=== PATIENT | male | born 1930 | race Caucasian/White ===

== ENCOUNTER 2016-06-12 13:49 | Inpatient (IN) | payer OTHER ==
[~2016-06-12] VITALS: Ht 177.8 cm; Wt 88.9 kg
[~2016-06-12 13:49] MED LIST: AMLODIPINE BESYL5 MG PO; AZITHROMYCIN250 MG1 PO; DAILY VALUE1 EACH PO; LEVAQUIN500 MG PO; METOPROLOL TART50 MG PO; PLAVIX75 MG PO; PROVENTIL HFA6.7 GM IH; QUINAPRIL HCL20 MG PO; SIMVASTATIN20 MG PO
[2016-06-12] MEDS ORDERED: CALCIUM 500 +1 EACH PO (14:05)
[2016-06-12] MEDS ORDERED: ASPIR 8181 M1 PO (14:05)
[2016-06-12 14:39] LABS: HEMATOCRIT 42.6 % (38.0-50.0); MCH 33.3 PG (29.0-34.0); MCHC 34.5 G/DL (30.0-36.0); MCV 96.6 FL (86-99); MEAN PLAT.VOLUME 8.6 uM^3 (9.0-12.4); PLATELET COUNT 371 K/uL (156-360); RBC DIS.WIDTH-CV 12.9 % (11.8-14.6); RBC DIS.WIDTH-SD 45.7 % (39-53); RED BLOOD COUNT 4.41 M/uL (4.00-5.50); WHITE BLOOD COUNT 19.1 K/uL (4.1-10.2)
[2016-06-12 14:48] LABS: ADD MIUA? YES; BILIRUBIN NEGATIVE; BLOOD NEGATIVE; COLOR AMBER ((YELLOW)); GLUCOSE (STRIP) NEGATIVE; KETONES 5; LEUKOCYTES NEGATIVE; NITRITE NEGATIVE; PROTEIN (STRIP) 100; SPECIFIC GRAVITY 1.028 (1.000-1.030); UROBILINOGEN 0.2 MG/DL (0.2-1.0)
[2016-06-12 14:53] LABS: CHLORIDE 101 mEq/L (99-109)
[2016-06-12 14:54] LABS: SODIUM 135 mEq/L (136-147)
[2016-06-12 14:54] LABS: BACTERIA RARE /HPF; EPITHELIAL CELLS NONE SEEN /HPF; MUCUS 2+ /LPF; RED BLOOD CELLS 0-5 /HPF (0-5); UCUL ADDED? NO; WHITE BLOOD CELLS 0-5 /HPF (0-5)
[2016-06-12 14:56] LABS: GLUCOSE 117 mg/dL (70-99)
[2016-06-12 14:57] LABS: ANION GAP 11 MEQ/L (2-14)
[2016-06-12 14:58] LABS: TOTAL BILIRUBIN 1.2 mg/dL (0.0-1.0)
[2016-06-12 14:59] LABS: ALKALINE PHOSPHATASE 57 IU/L (3-129)
[2016-06-12 15:00] LABS: GFR ESTIMATE (CALCULATED) > 59 mL/min/
[2016-06-12 15:01] LABS: DIRECT BILIRUBIN 0.6 mg/dL (0.0-0.3); UREA NITROGEN (BUN) 27 mg/dL (9-23)
[2016-06-12 15:03] LABS: LIPASE 9 U/L (1.0-51.0)
[2016-06-12 15:06] LABS: TROP-I INTERPRETATION NEGATIVE; TROPONIN-I 0.01 ng/mL (0.0-0.30)
[2016-06-12 22:02] VITALS: BP 140/62
[2016-06-13 02:50] VITALS: BP 139/74
[2016-06-13 05:58] LABS: ALKALINE PHOSPHATASE 42 IU/L (3-129); ANION GAP 9 MEQ/L (2-14); CHLORIDE 102 MEQ/L (99-109); GFR ESTIMATE (CALCULATED) > 59 mL/min/; GLUCOSE 155 mg/dL (70-99); POTASSIUM 4.4 MEQ/L (3.7-5.4); SAMPLE HEMOLYSIS CHECK 0; SAMPLE ICTERIC CHECK 0; SAMPLE LIPEMIA CHECK 0; SODIUM 134 MEQ/L (136-147); TOTAL BILIRUBIN 0.8 MG/DL (0.0-1.0); UREA NITROGEN (BUN) 28 mg/dL (9-23)
[2016-06-13 06:17] LABS: HEMATOCRIT 36.4 % (38.0-50.0); MCH 32.9 PG (29.0-34.0); MCHC 32.7 G/DL (30.0-36.0); MEAN PLAT.VOLUME 9.1 uM^3 (9.0-12.4); PLATELET COUNT 336 K/uL (156-360); RBC DIS.WIDTH-CV 13.1 % (11.8-14.6); RBC DIS.WIDTH-SD 48.6 % (39-53); RED BLOOD COUNT 3.62 M/uL (4.00-5.50); WHITE BLOOD COUNT 15.6 K/uL (4.1-10.2)
[2016-06-13 06:22] LABS: MCV 100.6 FL (86-99)
[2016-06-13 08:25] VITALS: BP 131/68
[2016-06-13 12:27] VITALS: BP 143/78
[2016-06-13 17:06] VITALS: BP 137/65
[2016-06-13 22:42] VITALS: BP 141/69
[2016-06-14 02:54] VITALS: BP 109/60
[2016-06-14 06:34] LABS: HEMATOCRIT 30.5 % (38.0-50.0); MCH 33.2 PG (29.0-34.0); MCHC 33.4 G/DL (30.0-36.0); MCV 99.3 FL (86-99); MEAN PLAT.VOLUME 9.3 uM^3 (9.0-12.4); NRBC (%) 0.2 /100 WBC (0-0); PLATELET COUNT 344 K/uL (156-360); RBC DIS.WIDTH-CV 12.9 % (11.8-14.6); RBC DIS.WIDTH-SD 46.3 % (39-53); RED BLOOD COUNT 3.07 M/uL (4.00-5.50)
[2016-06-14 07:00] VITALS: BP 127/60
[2016-06-14 07:04] LABS: ALKALINE PHOSPHATASE 41 IU/L (3-129); ANION GAP 9 MEQ/L (2-14); CHLORIDE 104 MEQ/L (99-109); GFR ESTIMATE (CALCULATED) > 59 mL/min/; POTASSIUM 4.4 MEQ/L (3.7-5.4); SAMPLE HEMOLYSIS CHECK 0; SAMPLE ICTERIC CHECK 0; SAMPLE LIPEMIA CHECK 0; SODIUM 138 MEQ/L (136-147); UREA NITROGEN (BUN) 24 mg/dL (9-23)
[2016-06-14 07:05] LABS: GLUCOSE 98 mg/dL (70-99); TOTAL BILIRUBIN 0.6 MG/DL (0.0-1.0)
[2016-06-14 10:47] VITALS: BP 112/60
[2016-06-14 15:55] VITALS: BP 125/59
[2016-06-14 19:23] VITALS: BP 116/59
[2016-06-14 23:34] VITALS: BP 126/69; BP 134/63
[2016-06-15 07:20] VITALS: BP 130/62
[2016-06-15] MEDS ORDERED: HYDROCODON-ACE1 EAC7 PO (10:00)
[2016-06-15] MEDS ORDERED: TAMSULOSIN HCL0.4 MG PO (10:00)
[2016-06-15] MEDS ORDERED: COLACE100 MG PO (10:00)
[2016-06-15 11:19] VITALS: BP 128/70
== END 2016-06-15 15:58 | disposition home or self-care (01) | DRG 419 ==
LOC: EME 13:49 → EDOF 16:30 → 5EAST 16:30
PROVIDERS: Emergency Medicine; Thoracic Surgery (Cardiothoracic Vascular Surgery)
PROC: 0FT44ZZ Resection of Gallbladder, Percutaneous Endoscopic Approach (ICD-10-PCS; principal; 2016-06-12)
DX: K80.00 Calculus of gallbladder with acute cholecystitis without obstruction (principal); I10 Essential (primary) hypertension; I25.10 Atherosclerotic heart disease of native coronary artery without angina pectoris; E78.5 Hyperlipidemia, unspecified; Z86.73 Personal history of transient ischemic attack (TIA), and cerebral infarction without residual deficits; M19.90 Unspecified osteoarthritis, unspecified site; E66.9 Obesity, unspecified; Z68.28 Body mass index [BMI] 28.0-28.9, adult
CPT/HCPCS: 74177; 76705; 80048; 80053; 80076; 81003; 83690; 84484; 85027; 87040; 87070; 87075; 87077; 87186; 87205; 88304; 93005; 94799; 99281; 99285; J0330; J0696; J1100; J1170; J1644; J2270; J2405; J2543; J3010; J7030; J7040; J7050; J7120